=== PATIENT | male | born 1985 | race Caucasian/White ===

== ENCOUNTER 2017-03-21 09:56 | Inpatient (IN) | payer OTHER ==
[2017-03-21 10:03] VITALS: BMI 27.8
[2017-03-21] MEDS ORDERED: ACETAMINOPHEN 325 MG TABLET (FP) PO ONE ×2 (11:35→15:47)
--- NOTE | 2017-03-21 11:35 | PDOC ---
History of Present Illness - General Chief Complaint: Abscess Boil Stated Complaint: testicular abscess Time Seen by Provider: 03/21/17 10:35 History Source: Patient Exam Limitations: No Limitations - History of Present Illness Initial Comments: 03/21/17 11:29 32M with no significant history is here today complaining of a possible abscess to the right side of his perineum. He states that he thought this was an in- grown hair yesterday, but it continued to get worse until he had a bloody discharge from the area. He also has associated right sided inguinal pain with palpation. He denies testicular pain, dysuria, constipation and abdominal pain. He denies fevers, chills, nausea and vomiting. Past History - Past Medical History Allergies/Adverse Reactions: Allergies Allergy/AdvReac Type Severity Reaction Status Date / Time No Known Allergies Allergy Verified 03/21/17 09:57 Home Medications: Ambulatory Orders NK [No Known Home Medication] 10/31/13 Other medical history: alcohol abuse - Psycho/Social/Smoking Cessation Hx Anxiety: No Suicidal Ideation: No Smoking History: Current every day smoker Have you smoked in the past 12 months: Yes Number of Cigarettes Smoked Daily: 3 Information on smoking cessation initiated: Yes 'Breaking Loose' booklet given: 03/21/17 Hx Alcohol Use: Yes (daily) Drug/Substance Use Hx: No Substance Use Type: Alcohol Review of Systems - Review of Systems Comments:: 03/21/17 12:46 GENERAL/CONSTITUTIONAL: No fever or chills. No weakness. HEAD, EYES, EARS, NOSE AND THROAT: No change in vision. No sore throat. CARDIOVASCULAR: No chest pain or shortness of breath RESPIRATORY: No cough, wheezing, or hemoptysis. GASTROINTESTINAL: No nausea, vomiting, diarrhea or constipation. GENITOURINARY: No dysuria, frequency, or change in urination. SKIN: Positive for wound on perineum NEUROLOGIC: No headache, vertigo, loss of consciousness, or change in strength/ sensation. HEMATOLOGIC/LYMPHATIC: No anemia, easy bleeding, or history of blood clots. ALLERGIC/IMMUNOLOGIC: No hives or skin allergy. *Physical Exam - Vital Signs Last Vital Signs Temp Pulse Resp BP Pulse Ox 98.0 F 105 H 16 154/111 100 03/21/17 09:58 03/21/17 09:58 03/21/17 09:58 03/21/17 09:58 03/21/17 09:58 - Physical Exam Comments: 03/21/17 12:47 GENERAL: Awake, alert, and fully oriented, in no acute distress HEAD: No signs of trauma, normocephalic, atraumatic EYES: PERRLA, EOMI, sclera anicteric, conjunctiva clear ENT: Auricles normal inspection, hearing grossly normal, nares patent, oropharynx clear without exudates. Moist mucosa LUNGS: No distress, speaks full sentences, clear to auscultation bilaterally HEART: Regular rate and rhythm, normal S1 and S2, no murmurs, rubs or gallops, peripheral pulses normal and equal bilaterally. ABDOMEN: Soft, normoactive bowel sounds. Tender to palpation in right inguinal region. No guarding, no rebound. No masses EXTREMITIES: Normal inspection, Normal range of motion, no edema. No clubbing or cyanosis. NEUROLOGICAL: Cranial nerves II through XII grossly intact. Normal speech, normal gait, no focal sensorimotor deficits : Perineum has 2x2 cm area of fluctuate mass that his erythematous and tender to palpation at the border of the scrotum. exam otherwise normal, two testicles, nontender. ED Treatment Course - LABORATORY CBC & Chemistry Diagram: 03/21/17 11:45 03/21/17 11:45 - RADIOLOGY Radiology Studies Ordered: Category Date Time Status PELVIS CT WITH CONTRAST [CT] Stat CT Scan 03/21/17 11:27 Ordered Medical Decision Making - Medical Decision Making 03/21/17 12:49 32M with no significant medical history here today with today with possible abscess to perineum. Vital signs normal and stable. Concern is for abscess going into adjacent structures and regina's gangrene. Will evaluate with labs and ct. Labs show CRP of 1.6, elevated glucose, sodium 133, hgb 13.1. LRINEC score of 8. Vanc/zosyn started. 03/21/17 17:31 CT shows scrotal cellulitis without free air. Urology consulted, does not believe surgery is necessary. Will continue antibiotics. Admitted to Dr Iqbal. *DC/Admit/Observation/Transfer Diagnosis at time of Disposition: Cellulitis of scrotum - Discharge Dispostion Condition at time of disposition: Stable Admit: Yes
[2017-03-21] MEDS ORDERED: ACETAMINOPHEN 650 MG/20.3 ML ORAL SOLUTION (CUPS) ONE (11:41)
[2017-03-21 12:06] LABS: MCH 26.3 pg (25.7-33.7); MCHC 33.1 g/dl (32.0-35.9); MEAN CELL VOLUME 79.5 fl (80-96); MEAN PLT VOLUME 8.4 fl (7.5-11.1); PLATELET COUNT 161 K/MM3 (134-434); RDW 12.8 % (11.9-15.9)
[2017-03-21 12:39] LABS: ALBUMIN 3.8 g/dl (3.4-5.0); ANION GAP 12 (8-16); BILIRUBIN,TOTAL 0.4 mg/dL (0.2-1.0); C-REACTIVE PROTEIN 1.6 MG/DL (0.00-0.3); CALCIUM 9.1 mg/dL (8.5-10.1); CO2 26 mmol/L (21-32); CREATININE 0.8 mg/dL (0.7-1.3); GLUCOSE,RANDOM 287 mg/dL (74-106); SGOT/AST 35 U/L (15-37); SGPT/ALT 54 U/L (12-78); TOT PROT 7.4 g/dl (6.4-8.2)
[2017-03-21 12:40] LABS: ALK PHOS 181 U/L (45-117)
[2017-03-21] MEDS ORDERED: VANCOMYCIN 1,000 MG in DEXTROSE 5%-WATER - 250 ML IVPB ONE (13:26)
[2017-03-21] MEDS ORDERED: PIPERACILLIN/TAZOB 4.5 GM/100 ML PRE-DOCKED IVPB ONE (13:30)
[2017-03-21] MEDS ORDERED: VANCOMYCIN 1 GRAM (PRE-DOCKED) 250 ML IVPB ONE ×2 (13:46)
[2017-03-21] MEDS ORDERED: PIPERACILLIN/TAZOB 4.5 GM 100 ML IVPB ONE (13:46)
--- NOTE | 2017-03-21 14:57 | PDOC ---
Attending Attestation - Resident Resident Name: ColtenHarris martinez - ED Attending Attestation I have performed the following: I have examined & evaluated the patient, The case was reviewed & discussed with the resident, I agree w/resident's findings & plan, Exceptions are as noted - HPI HPI: 03/21/17 14:50 32 M with no known PMH presents to ER with 1 day of pain and swelling behind his scrotum. Pt believes he had an ingrown hair that became infected. He states that he noticed pain and swelling behind the R side of his scrotum. It worsened today, and he noticed some reddish discharge. Pt denies F/C. Denies dysuria. Denies h/o STDs. - Physicial Exam PE: 03/21/17 14:54 "GENERAL: Awake, alert, and fully oriented, in no acute distress HEAD: No signs of trauma EYES: PERRLA, EOMI, sclera anicteric, conjunctiva clear ENT: Auricles normal inspection, hearing grossly normal, nares patent, oropharynx clear without exudates. Moist mucosa NECK: Nontender, no stepoffs, Normal ROM, supple, no lymphadenopathy, JVD, or masses LUNGS: Breath sounds equal, clear to auscultation bilaterally. No wheezes, and no crackles HEART: Regular rate and rhythm, normal S1 and S2, no murmurs, rubs or gallops ABDOMEN: Soft, nontender, normoactive bowel sounds. No guarding, no rebound. No masses : erythema and induration of perineal area, mildly fluctuance no active drainage, scrotum with mild TTP, penis nontender with no masses EXTREMITIES: Normal range of motion, no edema. No clubbing or cyanosis. No cords, erythema, or tenderness NEUROLOGICAL: Cranial nerves II through XII intact. 5/5 strength and sensation in all extremities, Normal speech, normal gait SKIN: Warm, Dry, normal turgor, no rashes or lesions noted. " - Medical Decision Making 03/21/17 14:57 32 M with cellulitis and possible abscess of perineum, with likely extension into scrotum. Concern for possible regina's. - Labs, UA - CT pelvis w/ contrast - Urology consult - IV abx
--- NOTE | 2017-03-21 15:21 | CON.GU ---
Consult Consult Specialty:: Urology Reason for Consultation:: Right scrotal cellulitis - History of Present Illness Chief Complaint: Right sided inguinal pain with right upper lateral scrotal open lesion. Patient squeezed the lesion and serosanguinous drainage resulted. WBC elevated to 11,000. Blood glucose also elevated. - History Source History Provided By: Patient Limitations to Obtaining History: No Limitations - Past Surgical History Past Surgical History: Yes: None - Alcohol/Substance Use Hx Alcohol Use: Yes (daily) History of Substance Use: reports: None - Smoking History Smoking history: Current every day smoker Have you smoked in the past 12 months: Yes Aproximately how many cigarettes per day: 3 - Social History Usual Living Arrangement: With Spouse Home Medications - Allergies Allergies/Adverse Reactions: Allergies Allergy/AdvReac Type Severity Reaction Status Date / Time No Known Allergies Allergy Verified 03/21/17 09:57 - Home Medications Home Medications: Ambulatory Orders NK [No Known Home Medication] 10/31/13 Family Disease History - Family Disease History Family History: Unremarkable Review of Systems - Review of Systems Constitutional: reports: No Symptoms. denies: Chills, Diaphoresis, Fever, Lethargy, Loss of Appetite, Malaise, Night Sweats, Unintentional Wgt. Loss, Weakness, Other Eyes: reports: No Symptoms HENT: reports: No Symptoms Neck: reports: No Symptoms Cardiovascular: reports: No Symptoms Respiratory: reports: No Symptoms Gastrointestinal: reports: No Symptoms Genitourinary: reports: No Symptoms, Testicular Swelling. denies: Burning, Discharge, Dysuria, Flank Pain, Frequency, Hematuria, Incontinence, Lesions, Menses, Pain, Testicular Mass, Testicular Pain, Urgency, Vaginal Bleeding, Other Breasts: reports: No Symptoms Reported Musculoskeletal: reports: No Symptoms Integumentary: reports: No Symptoms Endocrine: reports: No Symptoms Hematology/Lymphatic: reports: No Symptoms Psychiatric: reports: No Symptoms Physical Exam- Vital Signs: Vital Signs Temperature 98.0 F 03/21/17 09:58 Pulse Rate 105 H 03/21/17 09:58 Respiratory Rate 16 03/21/17 09:58 Blood Pressure 154/111 03/21/17 09:58 O2 Sat by Pulse Oximetry (%) 100 03/21/17 09:58 Constitutional: Yes: Well Nourished, No Distress, Calm Eyes: Yes: WNL HENT: Yes: WNL Neck: Yes: WNL Cardiovascular: Yes: WNL Respiratory: Yes: WNL Gastrointestinal: Yes: WNL Renal/: No: WNL, Anuria, Bladder Distention, CVA Tenderness - Left, CVA Tenderness - Right, Acuña Present, Hematuria, Incontinence, Menses Present, Oliguria, Polyuria, , Scrotal Edema, Urethral Discharge, Vaginal Bleeding, Vaginal Discharge, Other Kidneys: Yes: WNL Pelvis: Yes: WNL, Bladder Non Palpable, Inguinal Hernia Right (Pt with open 2cm lesion on upper outer right scrotal wall. No adenopathy noted. No testiclar involvement.), Tenderness (tenderness radiates into the right inguinal region.) Testicles: Yes: WNL Scrotum: Yes: Edema (right lateral region) Penis: Yes: WNL Prostate Exam: Yes: Deferred Musculoskeletal: Yes: WNL Extremities: Yes: WNL Peripheral Pulses WNL: Yes Integumentary: Yes: WNL Neurological: Yes: WNL Labs: CBC, BMP 03/21/17 11:45 03/21/17 11:45 Imaging - Results Cat Scan: Report Reviewed Problem List - Problems (1) Cellulitis of scrotum Code(s): N49.2 - INFLAMMATORY DISORDERS OF SCROTUM Assessment/Plan Admit for IV antibiotics, pain medications, Warm soaks to area. Blood and wound cultures taken.
[2017-03-21] MEDS ORDERED: ACETAMINOPHEN 325 MG TABLET (FP) ONE (16:31)
[2017-03-21 17:36] LABS: URINE APPEARANCE SLCLOUDY; URINE BILIRUBIN NEGATIVE (NEGATIVE); URINE BLOOD 2+ (NEGATIVE); URINE COLOR STRAW; URINE GLUCOSE (UA) 2+ (NEGATIVE); URINE KETONE NEGATIVE (NEGATIVE); URINE LEUK ESTERASE NEGATIVE (NEGATIVE); URINE NITRITE NEGATIVE (NEGATIVE); URINE PROTEIN NEGATIVE (NEGATIVE); URINE UROBILINOGEN NEGATIVE mg/dL (0.2-1.0)
[2017-03-21] MEDS ORDERED: FLU VACCINE QUAD 60 MCG/0.5 ML (MDV 17-18) IM ONE (17:39)
[2017-03-21 17:48] LABS: URINE BACTERIA RARE /hpf (NONE SEEN); URINE MUCUS MANY; URINE RBC 2 /hpf (0-3); URINE WBC 3 /hpf (3-5)
[2017-03-21] MEDS: ACETAMINOPHEN 500 MG TABLET (FP) PO PRN (20:22)
[2017-03-22] MEDS: ACETAMINOPHEN 500 MG TABLET (FP) PO PRN (03:34)
[2017-03-22] MEDS ORDERED: PIPERACILLIN/TAZOBACTAM 3.375 GM VIAL IVPB ONE (09:25)
[2017-03-22] MEDS ORDERED: DEXTROSE 5%-WATER - 50 ML IVPB ONE ×2 (09:25→17:29)
[2017-03-22] MEDS: ACETAMINOPHEN WITH CODEINE 300MG/30MG TABLET PO PRN ×3 (09:34→22:22)
[2017-03-22] MEDS ORDERED: PIPERACILLIN/TAZOB 3.375 GM 3.375 GM in DEXTROSE 5%-WATER - 50 ML IVPB ONE (10:00)
[2017-03-22] MEDS: metFORMIN HCL 500 MG TABLET (FP) PO SCH ×2 (11:04→17:31)
--- NOTE | 2017-03-22 13:49 | HP ---
DATE OF ADMISSION: HISTORY: A 32-year-old male known to me with no medical problems who came to the emergency room yesterday with complaints of pain right groin area mostly on the scrotum. No testicle pain. No dysuria. No constipation or abdominal pain. No fever or chills. FAMILY HISTORY: Not significant. Thinks mother has diabetes. Father healthy. SOCIAL HISTORY: He is . No children. He is employed. PHYSICAL EXAMINATION: Vital Signs: BP 140/83, pulse 84, respirations 20, temperature 98. HEENT: Unremarkable. Neck: Supple. No JVD. Lungs: Clear. Heart: S1, S2 normal. No S3 or S4. Abdomen: Soft. Genitourinary: Scrotal area, there is an open abscess on the right side of the scrotum. The inguinal area no hernia. Inguinal ring is patent. Neurologic: Grossly normal. Extremities: No edema. His peripheral pulses are felt good. LABORATORY DATA: Sodium 133, potassium 3.8, chloride 95, BUN 15, creatinine 0.8, blood sugar 287. C-reactive protein 1.6. WBC 11, hemoglobin 13.1. Urinalysis: Urine blood 2+. Chest x-ray is negative. CT of the pelvis increased soft tissue density of the right lateral scrotal sac. IMPRESSION: 1. Right scrotal abscess. 2. Diabetes. PLAN: IV antibiotics according to ID. We will follow. His blood sugar and hemoglobin A1C will be monitored. Nicki [id number]
--- NOTE | 2017-03-22 13:57 | EKG ---
Test Reason : Blood Pressure : / mmHG Vent. Rate : 079 BPM Atrial Rate : 079 BPM P-R Int : 150 ms QRS Dur : 084 ms QT Int : 362 ms P-R-T Axes : 035 035 041 degrees QTc Int : 415 ms NORMAL SINUS RHYTHM NONSPECIFIC ST ABNORMALITY ABNORMAL ECG NO PREVIOUS ECGS AVAILABLE Confirmed by SIA BROWN MD ([id number]) on 03/22/2017 1:57:16 PM Referred By: Confirmed By:SIA BROWN MD
--- NOTE | 2017-03-22 16:03 | CON.ID ---
Consult Consult Specialty:: infectious diseases Referred by:: Reason for Consultation:: scrotal abscess - History of Present Illness Chief Complaint: dalila and swelling of scrotum History of Present Illness: 32 M with no known PMH admitted with 1 day of pain and swelling behind his scrotum. Pt believes he had an ingrown hair that became infected. He states that he noticed pain and swelling behind the R side of his scrotum. It worsened today, and he noticed some reddish discharge. Pt denies F/C. Denies dysuria. Denies h/o STDs. according to him initially when it became red patient squeezed it and then he though it became better but then yesterday it became painful and red with swelling and developed abscess and was draining and patient came to the [facility] patient was seen by urology because of suspicion of renal colic - History Source History Provided By: Patient Limitations to Obtaining History: No Limitations - Past Surgical History Past Surgical History: Yes: None - Alcohol/Substance Use Hx Alcohol Use: Yes (daily) History of Substance Use: reports: None - Smoking History Smoking history: Current every day smoker Have you smoked in the past 12 months: Yes Aproximately how many cigarettes per day: 3 - Social History Usual Living Arrangement: With Spouse Home Medications - Allergies Allergies/Adverse Reactions: Allergies Allergy/AdvReac Type Severity Reaction Status Date / Time No Known Allergies Allergy Verified 03/21/17 09:57 - Home Medications Home Medications: Ambulatory Orders NK [No Known Home Medication] 10/31/13 Review of Systems - Review of Systems Constitutional: reports: No Symptoms Eyes: reports: No Symptoms HENT: reports: No Symptoms Neck: reports: No Symptoms Cardiovascular: reports: No Symptoms Respiratory: reports: No Symptoms Gastrointestinal: reports: No Symptoms Genitourinary: reports: Other (scrotal pain and swelling on the rt side with discharge) Musculoskeletal: reports: No Symptoms Integumentary: reports: No Symptoms Neurological: reports: No Symptoms Endocrine: reports: No Symptoms Hematology/Lymphatic: reports: No Symptoms Psychiatric: reports: No Symptoms Physical Exam Vital Signs: Vital Signs Temperature 98.4 F 03/22/17 13:17 Pulse Rate 84 03/22/17 13:17 Respiratory Rate 21 03/22/17 13:17 Blood Pressure 150/96 03/22/17 13:17 O2 Sat by Pulse Oximetry (%) 98 03/22/17 09:00 Constitutional: Yes: Well Nourished, No Distress, Calm Eyes: Yes: Conjunctiva Clear HENT: Yes: Atraumatic Neck: Yes: Supple, Trachea Midline Cardiovascular: Yes: Regular Rate and Rhythm Respiratory: Yes: Regular, CTA Bilaterally Gastrointestinal: Yes: Normal Bowel Sounds, Soft Renal/: Yes: Other (scrotal abscess which is draianing) Musculoskeletal: Yes: WNL Extremities: Yes: WNL Integumentary: Yes: WNL Wound/Incision: Yes: Open to air, Draining Neurological: Yes: Alert, Oriented Psychiatric: Yes: Alert, Oriented Imaging - Results Chest X-ray: Report Reviewed, Image Reviewed Cat Scan: Report Reviewed, Image Reviewed Assessment/Plan Problem List - Problems (1) Cellulitis of scrotum Code(s): N49.2 - INFLAMMATORY DISORDERS OF SCROTUM plan will start patient on abx will await for cx report will see if the wound drains spontaneously
[2017-03-22] MEDS ORDERED: CLINDAMYCIN IVPB 300 MG in DEXTROSE 5%-WATER - 48 ML IVPB SCH (16:15)
[2017-03-22] MEDS: CLINDAMYCIN 300 MG PREMIX IVPB 50 ML IVPB SCH ×2 (17:20→22:23)
[2017-03-22] MEDS ORDERED: PIPERACILLIN/TAZOBACTAM 2.25 GM VIAL IVPB ONE (17:28)
[2017-03-22] MEDS: PIPERACILLIN/TAZOB 2.25 GM 2.25 GM in DEXTROSE 5%-WATER - 50 ML IVPB SCH (17:53)
[2017-03-22] MEDS ORDERED: PIPERACILLIN/TAZOB 3.375 GM 3.375 GM in DEXTROSE 5%-WATER - 50 ML IVPB SCH (18:00)
[2017-03-22] MEDS ORDERED: PT OWN MED DRAWER 7, Y5N ONE (22:17)
[2017-03-23] MEDS ORDERED: DEXTROSE 5%-WATER - 50 ML IVPB ONE ×3 (02:48→17:01)
[2017-03-23] MEDS ORDERED: PIPERACILLIN/TAZOBACTAM 2.25 GM VIAL IVPB ONE ×3 (02:48→17:01)
[2017-03-23] MEDS: PIPERACILLIN/TAZOB 2.25 GM 2.25 GM in DEXTROSE 5%-WATER - 50 ML IVPB SCH ×3 (03:00→17:06)
[2017-03-23] MEDS: CLINDAMYCIN 300 MG PREMIX IVPB 50 ML IVPB SCH ×4 (03:00→21:00)
[2017-03-23] MEDS ORDERED: PT OWN MED DRAWER 7, Y5N ONE (06:05)
[2017-03-23] MEDS: metFORMIN HCL 500 MG TABLET (FP) PO SCH ×2 (06:48→17:04)
[2017-03-23] MEDS: ACETAMINOPHEN WITH CODEINE 300MG/30MG TABLET PO PRN ×2 (08:25→20:58)
--- NOTE | 2017-03-23 08:27 | PN ---
Progress Note, Physician Chief Complaint: scrotal pain persists History of Present Illness: Case discussed with Dr Dee,ID automotive service consultant ,Tishao is added to zosyn - Current Medication List Current Medications: Active Medications Acetaminophen (Tylenol -) 1,000 mg PO Q6H PRN PRN Reason: FEVER OR PAIN Last Admin: 03/22/17 03:34 Dose: 1,000 mg Acetaminophen/Codeine Phosphate (Tylenol # 3 -) 1 tab PO Q4H PRN Last Admin: 03/22/17 22:22 Dose: 1 tab Piperacillin Sod/Tazobactam (Sod 2.25 gm/ Dextrose) 50 mls @ 100 mls/hr IVPB Q8H-IV LEE PRN Reason: Protocol Last Admin: 03/23/17 03:00 Dose: 100 mls/hr Clindamycin Phosphate (Cleocin 300 Mg Premix Ivpb) 50 mls @ 100 mls/hr IVPB Q6H -IV LEE Last Admin: 03/23/17 03:00 Dose: 100 mls/hr Metformin HCl (Glucophage -) 500 mg PO BIDAC LEE Last Admin: 03/23/17 06:48 Dose: 500 mg - Objective Vital Signs: Vital Signs Temperature 98.4 F 03/23/17 06:00 Pulse Rate 85 03/23/17 06:00 Respiratory Rate 20 03/23/17 06:00 Blood Pressure 134/79 03/23/17 06:00 O2 Sat by Pulse Oximetry (%) 98 03/22/17 21:00 Constitutional: Yes: Mild Distress Eyes: Yes: WNL HENT: Yes: WNL Neck: Yes: WNL Cardiovascular: Yes: WNL Respiratory: Yes: Regular Gastrointestinal: Yes: WNL ...Rectal Exam: Yes: Deferred Genitourinary: Yes: Other (Absces draining) Musculoskeletal: Yes: WNL Extremities: Yes: WNL Edema: No Wound/Incision: Yes: Draining Neurological: Yes: WNL Labs: INR, PTT INR 1.00 (0.82-1.09) 03/21/17 14:00 Assessment/Plan BGM 165 On metformin
[2017-03-23 09:10] LABS: MCH 26.4 pg (25.7-33.7); MCHC 33.2 g/dl (32.0-35.9); MEAN CELL VOLUME 79.3 fl (80-96); MEAN PLT VOLUME 8.7 fl (7.5-11.1); PLATELET COUNT 177 K/MM3 (134-434); WHITE BLOOD COUNT 9.3 K/mm3 (4.0-10.0)
[2017-03-23 09:43] LABS: ALBUMIN 3.6 g/dl (3.4-5.0); ANION GAP 6 (8-16); BILIRUBIN,TOTAL 0.6 mg/dL (0.2-1.0); CALCIUM 9.3 mg/dL (8.5-10.1); CO2 32 mmol/L (21-32); GLUCOSE,RANDOM 135 mg/dL (74-106)
[2017-03-23 09:54] LABS: ALK PHOS 130 U/L (45-117); CREATININE 0.7 mg/dL (0.7-1.3); SGOT/AST 42 U/L (15-37); SGPT/ALT 52 U/L (12-78); THYROID STIMULATING HORMONE 1.99 uIU/ml (0.358-3.74); TOT PROT 7.2 g/dl (6.4-8.2)
[2017-03-23] MEDS ORDERED: FLU VACCINE QUAD 60 MCG/0.5 ML (MDV 17-18) IM ONE (11:00)
--- NOTE | 2017-03-23 14:39 | PN ---
Progress Note, Physician History of Present Illness: patient stable wound drained spontaneously lot of drainage painful size has decreased a lot - Current Medication List Current Medications: Active Medications Acetaminophen (Tylenol -) 1,000 mg PO Q6H PRN PRN Reason: FEVER OR PAIN Last Admin: 03/22/17 03:34 Dose: 1,000 mg Acetaminophen/Codeine Phosphate (Tylenol # 3 -) 1 tab PO Q4H PRN Last Admin: 03/23/17 08:25 Dose: 1 tab Piperacillin Sod/Tazobactam (Sod 2.25 gm/ Dextrose) 50 mls @ 100 mls/hr IVPB Q8H-IV LEE PRN Reason: Protocol Last Admin: 03/23/17 10:53 Dose: 100 mls/hr Clindamycin Phosphate (Cleocin 300 Mg Premix Ivpb) 50 mls @ 100 mls/hr IVPB Q6H -IV LEE Last Admin: 03/23/17 10:10 Dose: 100 mls/hr Metformin HCl (Glucophage -) 500 mg PO BIDAC LEE Last Admin: 03/23/17 06:48 Dose: 500 mg - Objective Vital Signs: Vital Signs Temperature 97.8 F 03/23/17 14:00 Pulse Rate 88 03/23/17 14:00 Respiratory Rate 18 03/23/17 14:00 Blood Pressure 152/90 03/23/17 14:00 O2 Sat by Pulse Oximetry (%) 98 03/22/17 21:00 Constitutional: Yes: No Distress, Calm Cardiovascular: Yes: Regular Rate and Rhythm Respiratory: Yes: Regular, CTA Bilaterally Gastrointestinal: Yes: Normal Bowel Sounds, Soft Musculoskeletal: Yes: WNL Extremities: Yes: WNL Integumentary: Yes: Other Wound/Incision: Yes: Draining, Other Neurological: Yes: Alert, Oriented Psychiatric: Yes: Alert, Oriented Labs: CBC, BMP 03/23/17 08:00 03/23/17 08:43 INR, PTT INR 1.00 (0.82-1.09) 03/21/17 14:00 Assessment/Plan Problem List - Problems (1) Cellulitis of scrotum Code(s): N49.2 - INFLAMMATORY DISORDERS OF SCROTUM 2 abscess of the scrotum cx result noted plan continue abx will stop zosyn tomorrow continue clinda await for sensitivities
[2017-03-23] MEDS: glipiZIDE 5 MG TABLET (FP) PO SCH (18:25)
[2017-03-24] MEDS ORDERED: DEXTROSE 5%-WATER - 50 ML IVPB ONE ×2 (00:49→09:30)
[2017-03-24] MEDS ORDERED: PIPERACILLIN/TAZOBACTAM 2.25 GM VIAL IVPB ONE ×2 (00:49→09:30)
[2017-03-24] MEDS: ACETAMINOPHEN WITH CODEINE 300MG/30MG TABLET PO PRN ×2 (01:05→08:44)
[2017-03-24] MEDS: PIPERACILLIN/TAZOB 2.25 GM 2.25 GM in DEXTROSE 5%-WATER - 50 ML IVPB SCH ×2 (01:59→09:37)
[2017-03-24] MEDS: CLINDAMYCIN 300 MG PREMIX IVPB 50 ML IVPB SCH ×2 (02:18→09:35)
[2017-03-24] MEDS: metFORMIN HCL 500 MG TABLET (FP) PO SCH (06:39)
[2017-03-24] MEDS: glipiZIDE 5 MG TABLET (FP) PO SCH (06:39)
[2017-03-24 07:28] VITALS: BP 141/88; PULSE 95; TEMP 98.7
--- NOTE | 2017-03-24 09:29 | DS ---
Physical Examination Vital Signs: Vital Signs Temperature 98.7 F 03/24/17 06:00 Pulse Rate 95 H 03/24/17 06:00 Respiratory Rate 18 03/24/17 06:00 Blood Pressure 141/88 03/24/17 06:00 O2 Sat by Pulse Oximetry (%) 100 03/23/17 21:00 Findings/Remarks: Carbuncle Rt side of scrotum New on set diabetes Constitutional: Yes: Well Nourished Eyes: Yes: WNL HENT: Yes: WNL Neck: Yes: WNL Cardiovascular: Yes: WNL Respiratory: Yes: WNL Gastrointestinal: Yes: WNL ...Rectal Exam: Yes: Deferred Renal/: Yes: WNL Breast(s): Yes: WNL Musculoskeletal: Yes: WNL Edema: No Peripheral Pulses WNL: Yes Wound/Incision: Yes: Clean/Dry Neurological: Yes: WNL ...Motor Strength: WNL Psychiatric: Yes: WNL Labs: CBC, BMP 03/23/17 08:00 03/23/17 08:43 Discharge Summary Reason For Visit: CELLULITIS OF SCROTUM Current Active Problems Cellulitis of scrotum (Acute) Condition: Stable - Instructions Referrals: Manoj Iqbal MD [Primary Care Provider] - - Home Medications Comprehensive Discharge Medication List: Ambulatory Orders NK [No Known Home Medication] 10/31/13
[2017-03-24] MEDS ORDERED: PT OWN MED DRAWER 7, Y5N ONE (09:30)
== END 2017-03-24 10:59 | disposition home or self-care (01) | DRG 501 ==
LOC: JER 09:56 → JERBED 15:41 → J5S 18:26
PROVIDERS: ADMIT Internal Medicine; ATTEND Internal Medicine
DX: N49.2 Inflammatory disorders of scrotum (principal); F17.210 Nicotine dependence, cigarettes, uncomplicated; E11.9 Type 2 diabetes mellitus without complications; F10.10 Alcohol abuse, uncomplicated
CPT/HCPCS: 36415; 71010-TC; 72193-TC; 80053; 81003; 81015; 84443; 85027; 85610; 86140; 86850; 86900; 86901; 87040; 87070; 87086; 87186; 87205; 93005; 93010; 99283-25

== ENCOUNTER 2017-12-02 17:51 | Emergency (ER) | payer OTHER ==
[2017-12-02 17:57] VITALS: BP 144/88; PULSE 72; TEMP 98.5; BMI 27.8
--- NOTE | 2017-12-02 18:25 | PDOC ---
History of Present Illness - General Chief Complaint: Injury Stated Complaint: FALL/INJURY Time Seen by Provider: 12/02/17 18:06 History Source: Patient Exam Limitations: No Limitations - History of Present Illness Initial Comments: 12/02/17 18:30 Pt. is a 32 y/o M who presents to the ED c/o R wrist pain after falling off of a latter on Wednesday. Pt states he was approximately 4 feet in the air when the latter slipped. He reached out with his R hand to break his all. Denies head injury, LOC, dizziness. Currently states he has the most pain over his R 3-5th fingers. Denies weakness/numbness and tingling to extremities. Past History - Travel Traveled outside of the country in the last 30 days: No Close contact w/someone who was outside of country & ill: No - Past Medical History Allergies/Adverse Reactions: Allergies Allergy/AdvReac Type Severity Reaction Status Date / Time No Known Allergies Allergy Verified 12/02/17 17:53 Home Medications: Ambulatory Orders Ibuprofen 800 mg PO TID #30 tablet 12/02/17 Oxycodone HCl/Acetaminophen [Percocet 5-325 mg Tablet] 10 tab PO Q6H #20 tablet MDD 4 12/02/17 COPD: No DVT: No Other medical history: gout - Suicide/Smoking/Psychosocial Hx Smoking History: Current every day smoker Have you smoked in the past 12 months: Yes Number of Cigarettes Smoked Daily: 5 Information on smoking cessation initiated: Yes 'Breaking Loose' booklet given: 12/02/17 Hx Alcohol Use: No Drug/Substance Use Hx: No Substance Use Type: None Review of Systems - Review of Systems Able to Perform ROS?: Yes Comments:: 12/02/17 18:32 CONSTITUTIONAL: Absent: fever, chills, diaphoresis, generalized weakness, malaise, loss of appetite HEENT: MUSCULOSKELETAL: Present: R hand pain Absent: myalgia, arthralgia, joint swelling SKIN: Present: R hand bruising Absent: rash, itching, pallor HEMATOLOGIC/IMMUNOLOGIC: Absent: easy bleeding, easy bruising, lymphadenopathy, frequent infections ENDOCRINE: Absent: unexplained weight gain, unexplained weight loss, heat intolerance, cold intolerance NEUROLOGIC: Absent: headache, focal weakness or paresthesias, dizziness, unsteady gait, seizure, mental status changes, bladder or bowel incontinence PSYCHIATRIC: Absent: anxiety, depression, suicidal or homicidal ideation, hallucinations. Is the patient limited Slovak proficient: No *Physical Exam - Vital Signs Last Vital Signs Temp Pulse Resp BP Pulse Ox 98.5 F 72 18 144/88 100 12/02/17 17:53 12/02/17 17:53 12/02/17 17:53 12/02/17 17:53 12/02/17 17:53 - Physical Exam Comments: 12/02/17 18:40 GENERAL: Well developed, well nourished. Awake and alert. No acute distress. HEENT: Normocephalic, atraumatic. PERRLA, EOMI. No conjunctival pallor. Sclera are non- icteric. Moist mucous membranes. Oropharynx is clear. NECK: Supple. Full ROM. No JVD. Carotid pulses 2+ and symmetric, without bruits. No thyromegaly. No lymphadenopathy. MUSCULOSKELETAL TTP to the 5th carpel, 3-5th metacarpels. Pain with making a fist in the R hand. Normal range of motion at all other joints. No CVA tenderness. EXTREMITIES: No cyanosis. No clubbing. No edema. No calf tenderness. SKIN: Warm and dry. Normal capillary refill. No rashes. No jaundice. NEUROLOGICAL: Alert, awake, appropriate. Cranial nerves 2-12 intact. No deficits to light touch and temperature in face, upper extremities and lower extremities. No motor deficits in the in face, upper extremities and lower extremities. Normoreflexic in the upper and lower extremities. Normal speech. Toes are down- going bilaterally. Gait is normal without ataxia. PSYCHIATRIC: Cooperative. Good eye contact. Appropriate mood and affect. Procedures - Splinting Splint Location: Right: Hand (proximal 5th phalynx fracture) Pre-Proc Neuro Vasc Exam: normal Hand-Made Type: orthoglass Splint Type: Yes: Ulnar Post-Proc Neuro Vasc Exam: unchanged from pre-exam Archie Bandage: 4" Sling: Yes Medical Decision Making - Medical Decision Making 12/02/17 19:03 Pt. is a 32 y/o M who presents to the ED with pain to the R hand for 4 days after falling off of a ladder. Neuro exam is grossly normal. R hand with positive 5th proximal phalynx fracture. Placed in ulnar gutter spling and referred to ortho. Return precautions given. Pt. understands all dc instructions and all questions were answered. *DC/Admit/Observation/Transfer Diagnosis at time of Disposition: Hand fracture, right Qualifiers: Encounter type: initial encounter Fracture type: closed Qualified Code(s): S62.91XA - Unspecified fracture of right wrist and hand, initial encounter for closed fracture - Discharge Dispostion Disposition: HOME Condition at time of disposition: Stable Decision to Admit order: No - Prescriptions Prescriptions: Ibuprofen 800 mg PO TID #30 tablet Oxycodone HCl/Acetaminophen [Percocet 5-325 mg Tablet] 10 tab PO Q6H #20 tablet MDD 4 - Referrals Referrals: Manoj Iqbal MD [Primary Care Provider] - Amandeep Yeh MD [Staff Physician] - - Patient Instructions Printed Discharge Instructions: DI for a Hand Fracture Additional Instructions: You broke your 5th hand bone (phalynx) You were placed in a splint. Please wear the splint until you can see orthopedics. You may ice the hand through the sling Wear the sling while awake to keep the arm elevated. You may take Motrin 600mg every 6 hours as needed for pain. You may take percocet as needed for break through pain every 6 hours as needed Follow up with orthopedics on Wednesday. A referral has been provided for you Return to the ED if you have any changes in your symptoms or new or worsening symptoms - Post Discharge Activity Forms/Work/School Notes: Back to Work
== END 2017-12-02 19:22 | disposition home or self-care (01) ==
LOC: JERFT 17:51
PROC: 2W3CX1Z Immobilization of Right Lower Arm using Splint (ICD-10-PCS; principal; 2017-12-02)
DX: S62.646A Nondisplaced fracture of proximal phalanx of right little finger, initial encounter for closed fracture (principal); W11.XXXA Fall on and from ladder, initial encounter; Y93.89 Activity, other specified; Y92.89 Other specified places as the place of occurrence of the external cause; Y99.8 Other external cause status
CPT/HCPCS: 73110-TC-RT-FY; 73130-TC-RT-FY; 99281-25